=== PATIENT | female | born 1955 | race Caucasian/White ===

== ENCOUNTER 2017-03-16 15:57 | Emergency (ER) | payer MEDICAID, OTHER ==
[~2017-03-16] VITALS: Ht 152.4 cm; Wt 78.0 kg
[2017-03-16 16:04] VITALS: Ht 152.4 cm; Wt 78.0 kg
[2017-03-16 19:28] LABS: BASOPHIL # 0.1 10^3/ul (0.0-0.1); BASOPHILS % 0.7 % (0.0-2.0); EOSINOPHILS # 0.2 10^3/ul (0.0-0.5); HEMATOCRIT 46.4 % (37.0-47.0); HEMOGLOBIN 15.5 g/dl (12.0-16.0); LYMPHOCYTES # 3.6 10^3/ul (0.8-2.9); LYMPHOCYTES % 36.6 % (15.0-51.0); MEAN CORPUSCULAR HEMOGLOBIN 27.2 pg (29.0-33.0); MEAN CORPUSCULAR HGB CONC 33.4 g/dl (32.0-37.0); MEAN CORPUSCULAR VOLUME 81.5 fl (82.0-101.0); MEAN PLATELET VOLUME 9.7 fl (7.4-10.4); MONOCYTE # 0.5 10^3/ul (0.3-0.9); MONOCYTES % 5.4 % (0.0-11.0); NEUTROPHIL # 5.4 10^3/ul (1.6-7.5); PLATELET COUNT 427 10^3/UL (140-415); RED BLOOD COUNT 5.69 10^6/ul (4.20-5.40); RED CELL DISTRIBUTION WIDTH 12.8 % (11.5-14.5); WHITE BLOOD COUNT 9.8 10^3/ul (4.8-10.8)
[2017-03-16 19:33] LABS: ADD UMIC YES; UR ASCORBIC ACID NEGATIVE (NEGATIVE); UR BACTERIA FEW /HPF (NONE SEEN); UR BILIRUBIN (Dip) NEGATIVE (NEGATIVE); UR BLOOD (Dip) 1+ mg/dL (NEGATIVE); UR CLARITY CLEAR (CLEAR); UR COLOR STRAW (YELLOW); UR GLUCOSE (Dip) NEGATIVE (NEGATIVE); UR KETONES (Dip) NEGATIVE (NEGATIVE); UR LEUKOCYTE ESTERASE (Dip) TRACE Leu/ul (NEGATIVE); UR NITRITE (Dip) NEGATIVE (NEGATIVE); UR RBC 2 /HPF (0-5); UR SPECIFIC GRAVITY (Dip) 1.005 (1.003-1.030); UR TOTAL PROTEIN (Dip) NEGATIVE (NEGATIVE); UR UROBILINOGEN (Dip) NEGATIVE (NEGATIVE)
--- NOTE | 2017-03-16 19:38 | ERD ---
ER Documentation Chief Complaint Chief Complaint AP X 1 YEARS HPI This is a 61-year-old female with a history of chronic abdominal pain who is presenting with exacerbation of her abdominal pain. She describes it as generalized cramping, and it has actually resolved. The patient states that when she gets these pains, she feels like she cannot move. She does endorse occasional constipation. However, she has had a bowel movement every day recently. She does not endorse any diarrhea. She does not have any pain or burning or discharge with urination. She does not having any vaginal complaints. The patient denies feeling sick recently. The patient denies fever or chills. The patient has had no headache or vision changes. The patient does not endorse neck or back pain. The patient denies lightheadedness or dizziness. The patient has had no chest pain or shortness of breath or trouble breathing. The patient denies nausea or vomiting. The patient has had no focal deficits. The patient has had no weakness or numbness or tingling to the face or extremities. ROS All systems reviewed and are negative except as per history of present illness. Medications Home Meds No Active Prescriptions or Reported Meds Allergies Allergies: Coded Allergies: No Known Allergy (Unverified , 03/16/17) PMhx/Soc Medical and Surgical Hx: pt denies Medical Hx, pt denies Surgical Hx History of Surgery: No Hx Neurological Disorder: No Hx Respiratory Disorders: No Hx Cardiac Disorders: No Hx Psychiatric Problems: No Hx Miscellaneous Medical Probl: Yes (Abdominal pain) Hx Alcohol Use: No Hx Substance Use: No Hx Tobacco Use: No Smoking Status: Never smoker FmHx Family History: No coronary disease, No diabetes Physical Exam Vitals Vital Signs Date Time Temp Pulse Resp B/P Pulse Ox O2 Delivery O2 Flow Rate FiO2 03/16/17 19:15 98.1 76 15 130/76 97 Room Air 03/16/17 16:04 98.2 80 18 130/76 99 Physical Exam Const: No apparent distress, well-developed, well-nourished Head: Normocephalic, Atraumatic Eyes: Normal Conjunctiva. Extraocular movements intact. Pupils equal, round and reactive to light ENT: Normal External Ears, Nose and Mouth. Neck: Full range of motion. No meningismus. Resp: Clear to auscultation bilaterally, No wheezes, rales or rhonchi Cardio: Regular rate and rhythm. No murmurs, rubs or gallops Abd: Obesity. Right upper quadrant abdominal tenderness. Soft, non distended. Normal bowel sounds Skin: No petechiae or rashes Back: No midline tenderness. No CVA tenderness Ext: No cyanosis, or edema Neur: Awake and alert, oriented 4. Cranial nerves intact. No facial droop. Normal strength, sensation and coordination. Psych: Normal Mood and Affect Result Diagram: 03/16/17191803/16/171918 Results 24 hrs Laboratory Tests Test 03/16/17 19:19 White Blood Count 9.810^3/ul Red Blood Count 5.6910^6/ul Hemoglobin 15.5g/dl Hematocrit 46.4% Mean Corpuscular Volume 81.5fl Mean Corpuscular Hemoglobin 27.2pg Mean Corpuscular Hemoglobin Concent 33.4g/dl Red Cell Distribution Width 12.8% Platelet Count 26117^3/UL Mean Platelet Volume 9.7fl Neutrophils % 55.0% Lymphocytes % 36.6% Monocytes % 5.4% Eosinophils % 2.0% Basophils % 0.7% Nucleated Red Blood Cells % 0.0/100WBC Neutrophils # 5.410^3/ul Lymphocytes # 3.610^3/ul Monocytes # 0.510^3/ul Eosinophils # 0.210^3/ul Basophils # 0.110^3/ul Nucleated Red Blood Cells # 0.010^3/ul Urine Color STRAW Urine Clarity CLEAR Urine pH 6.0 Urine Specific Festus 1.005 Urine Ketones NEGATIVEmg/dL Urine Nitrite NEGATIVEmg/dL Urine Bilirubin NEGATIVEmg/dL Urine Urobilinogen NEGATIVEmg/dL Urine Leukocyte Esterase TRACELeu/ul Urine Microscopic RBC 2/HPF Urine Microscopic WBC 4/HPF Urine Bacteria FEW/HPF Urine Hemoglobin 1+mg/dL Urine Glucose NEGATIVEmg/dL Urine Total Protein NEGATIVEmg/dl Sodium Level 140mmol/L Potassium Level 3.8mmol/L Chloride Level 98mmol/L Carbon Dioxide Level 32mmol/L Anion Gap 14 Blood Urea Nitrogen 12mg/dl Creatinine 0.62mg/dl Glucose Level 102mg/dl Calcium Level 9.9mg/dl Total Bilirubin 0.2mg/dl Direct Bilirubin 0.00mg/dl Indirect Bilirubin 0.2mg/dl Aspartate Amino Transf (AST/SGOT) 33IU/L Alanine Aminotransferase (ALT/SGPT) 50IU/L Alkaline Phosphatase 146IU/L Total Protein 9.1g/dl Albumin 4.7g/dl Globulin 4.40g/dl Albumin/Globulin Ratio 1.06 Lipase 159U/L Procedures/MDM MDM The patient's presentation warrants further investigation. The patient presents with abdominal pain. The patient does not have any evidence of peritonitis. The patient does not have any palpable pulsatile mass, and I have low suspicion for AAA. The patient does not have any left lower quadrant tenderness, and I have low suspicion for diverticulosis or diverticulitis. The patient does not have any right lower quadrant tenderness, and I have low suspicion for appendicitis. The patient does not have left upper quadrant tenderness. I have low suspicion for pancreatitis. The patient does not have any flank tenderness. He does not have gross hematuria. I have decreased suspicion for nephrolithiasis or renal colic. Does have mild right upper quadrant tenderness, so a right upper quadrant ultrasound will be performed. The patient does not have clinical symptoms concerning for mesenteric ischemia or ischemic colitis. Her exam is reassuring. Her pain resolved on its own. LABS The patient's blood work was obtained and reviewed. The patient's CBC shows no leukocytosis and no left shift. The patient is afebrile and does not appear systemically ill. I do not suspect a systemic infection. The patient is not anemic today. The patient has a thrombocytosis, likely reactive. The patient' s CMP shows no signs of metabolic or electrolyte emergencies. She has a mild metabolic alkalosis that may be evaluated as an outpatient. She does not carry diagnosis of COPD and is not wheezing today. I have decreased suspicion for a respiratory acidosis. The patient has unremarkable renal and hepatic function testing. His lipase is negative. The patient's urinalysis shows no signs of hematuria. She does have trace leukocyte esterase with 4 WBCs and a few bacteria. She may have UTI. A urine culture will be sent off. The patient will be treated for this. TREATMENT/DISPOSITION She will be given a prescription for Keflex. She will be notified of the urine culture comes back positive for something that is not sensitive to this antibiotic. She will be instructed to follow-up with her primary care physician. 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 At this time, I feel that the patient stable for discharge. The patient will need follow-up with his primary care physician in 2-3 days. The patient will be given strict precautions with which to return to the emergency department. The patient's blood pressure was elevated at greater than 120/80 while in the emergency department. The patient was otherwise stable with no evidence of hypertensive urgency or emergency or end organ damage. The patient does not require admission for blood pressure control. I have discussed with the patient the risks of hypertension. I have advised the patient to follow up with the primary care physician for outpatient monitoring and treatment for hypertension in 2-3 days. I have instructed the patient to return to the ER for any new or worsening symptoms including chest pain, shortness of breath, headache, blurred vision, confusion, nausea, vomiting or LOC. Disclaimer: Inadvertent spelling and grammatical errors are likely due to EHR/ dictation software use and do not reflect on the overall quality of patient care. Note that the electronic time recorded on this note does not necessarily reflect the actual time of the patient encounter. Departure Diagnosis: Primary Impression: Abdominal colic Additional Impressions: UTI (urinary tract infection) Urinary tract infection type: acute cystitis Hematuria presence: without hematuria Qualified Code: N30.00 - Acute cystitis without hematuria Thrombocytosis Metabolic alkalosis Condition: Stable JEANNINE LOZOYA MD Mar 16, 2017 19:38
[2017-03-16 19:46] LABS: ALBUMIN 4.7 g/dl (3.3-4.9); ALBUMIN/GLOBULIN RATIO 1.06; BILIRUBIN,INDIRECT 0.2 mg/dl (0-1.1); BILIRUBIN,TOTAL 0.2 mg/dl (0.2-1.3); CALCIUM 9.9 mg/dl (8.4-10.2); CREATININE 0.62 mg/dl (0.44-1.00); POTASSIUM 3.8 mmol/L (3.5-5.1); TOTAL PROTEIN 9.1 g/dl (6.1-8.1)
[2017-03-16] MEDS ORDERED: CEPH-443 PO (21:16)
[2017-03-16 21:21] VITALS: BP 129/76; PULSE 79; RESP 14; TEMP 98.1
== END 2017-03-16 21:21 | disposition home or self-care (01) ==
LOC: E/R 15:57
DX: N30.00 Acute cystitis without hematuria (principal); D69.6 Thrombocytopenia, unspecified; E87.3 Alkalosis; E66.9 Obesity, unspecified; R40.2142 Coma scale, eyes open, spontaneous, at arrival to emergency department; R40.2252 Coma scale, best verbal response, oriented, at arrival to emergency department; R40.2362 Coma scale, best motor response, obeys commands, at arrival to emergency department; Z68.33 Body mass index [BMI] 33.0-33.9, adult
CPT/HCPCS: 36415; 80053; 81001; 83690; 85025; 87086; Z7502; 99283